=== PATIENT | female | born 1970 | race Caucasian/White ===

== ENCOUNTER → 2022-09-29 | Outpatient (CLI) | payer OTHER, SELFPAY ==
[2022-09-29 10:17] LABS: Absolute Neutrophil Count 2.4 X10^3/uL (2.0-7.7); Basophil# 0.03 X10^3/uL; Basophil% 0.7 % (0-1); Eosinophil# 0.08 X10^3/uL; Eosinophils% 1.8 % (0-5); Hematocrit 41.6 % (37-47); Hemoglobin 13.3 g/dL (12.0-15.0); Lymphocyte % 35.9 % (19-41); Mean Corpuscular Hgb 30.9 pg (27.0-32.0); Mean Corpuscular Volume 96.5 fL (81-99); Mean Platelet Vol. 9.2 fl (6.2-12.0); Monocyte# 0.33 X10^3/uL; Monocyte% 7.4 % (0-10); NRBC Flagged by Analyzer 0 % (0-5); Neutrophil # 2.41 X10^3/uL (2.7-7.7); Platelet Count 357 K/mm3 (150-450); RBC Distribution Width CV 12.9 % (11.6-14.6); RBC Distribution Width SD 46.3 fl (35.1-43.9); Red Blood Count 4.31 M/mm3 (4.2-5.4); White Blood Count 4.5 K/mm3 (4.4-11.0)
[2022-09-29 10:50] LABS: ALB/GLOB Ratio 1.2 RATIO (0.9-2.4); AST(SGOT) 26 U/L (15-37); Alanine Aminotransfer ALT/SGPT 27 U/L (13-56); Albumin, Serum 3.8 g/dL (3.2-5.0); Alkaline Phosphatase 59 U/L (45-117); Anion Gap 3 (5-15); BUN 17 mg/dL (7-18); BUN/Creat Ratio 24.4 RATIO (10-20); Calcium,Total 8.9 mg/dL (8.5-10.1); Chloride 107 mmol/L (98-107); Cholesterol 257 mg/dL (200); EST Glomerular Filtration Rate 93 mL/min (>60); Est Glom Filt Rate - Afr Amer 113 mL/min (>60); Globulin 3.3 g/dL (2.2-4.2); Glucose 89 mg/dL (74-106); High Density Lipoprotein 97 mg/dL; Potassium 3.8 mmol/L (3.5-5.1); Protein, Total 7.1 g/dL (6.4-8.2); Sodium Level 139 mmol/L (136-145); Triglycerides 64 mg/dL; Very Low Density Lipoprotein 13 mg/dL (5-40)
[2022-09-29 11:23] LABS: Hepatitis B Surface Antibody Reactive; Hepatitis B Surface Antigen Non-Reactive (Nonreactive); Hepatitis C Antibody Non-Reactive (Nonreactive)
[2022-10-01 19:07] LABS: QNTFERON TB Mitogen Value > 10.00 IU/mL (.); QNTFERON TB Nil Value 0.08 IU/mL (.); QNTFERON TB1+ Ag Value 0.08 IU/mL (.); QNTFERON TB2+ Ag Value 0.09 IU/mL (.)
[2022-10-02 08:29] LABS: Hepatitis B Core Ab Total Negative (Negative); QNTIFERON TB Positive Criteria Negative (Negative)
== END | disposition home or self-care (01) ==
PROVIDERS: PCP Internal Medicine Infectious Disease; Referring Provider Dermatology; Visit Provider Dermatology
DX: L63.1 Alopecia universalis (principal); Z79.622 Long term (current) use of Janus kinase inhibitor; Z79.899 Other long term (current) drug therapy
CPT/HCPCS: 36415; 80053; 80061; 85025; 86480; 86704; 86706; 86803; 87340

== ENCOUNTER → 2023-08-28 | Outpatient (CLI) | payer OTHER, SELFPAY ==
--- OUTSIDE RECORDS SUMMARY | 2023-08-28 08:15 | XMS RPT_ITS | CCD ---
Author Name Unknown Address [address] [facility] [address] [place] [address] Organization [facility] Care Team Providers Care Supervisor [employer] Name Role Phone WESTON LAWSON MD Admitting Unavailable WESTON LAWSON MD Attending Unavailable WESTON LAWSON MD Primary Care Unavailable Weston Lawson Primary Care Provider Weston Lawson MD Primary Care Provider WESTON LAWSON Primary Care Unavailable WESTON LAWSON Primary Care Unavailable WESTON LAWSON MD Primary Care Unavailable WESTON LAWSON MD Admitting Unavailable WESTON LAWSON MD Attending Unavailable WESTON LAWSON MD Consulting Unavailable PROVIDER, UNKNOWN Consulting Unavailable PROVIDER, UNKNOWN Consulting Unavailable PROVIDER, UNKNOWN Consulting Unavailable SILVERIO AGUILAR MD Attending Unavailable SILVERIO AGUILAR MD Primary Care Unavailable SILVERIO AGUILAR MD Admitting Unavailable Allergies Allergy Classification Reported Allergen(s) Allergy Type Date of Onset Reaction(s) Facility (5 sources) Escitalopram; Translations: [ESCITALOPRAM OXALATE] Drug Allergy 04-28-2005 Intolerance [facility] Work Phone: (5 sources) Meperidine; Translations: [MEPERIDINE (PF)] Drug Allergy 04-27-2005 [facility] Work Phone: Medications Current Medications Medication Drug Class(es) Dates Sig (Normalized) Sig (Original) fluconazole 150 mg oral tablet (2 sources) Azole Antifungal Start: 08-06-2022 End: 08-07-2022 take 1 tablet by mouth once daily fluconazole (DIFLUCAN) 150 mg tablet Indications: Dysuria Take 1 tablet by mouth once daily for 1 day. 1 tablet 0 08/06/2022 08/07/2022 Active Completed/Discontinued Medications Medication Drug Class(es) Dates Sig (Normalized) Sig (Original) betamethasone 0.5 mg/ml / clotrimazole 10 mg/ml topical cream (4 sources) Azole Antifungal, Corticosteroid Start: 04-07-2021 clotrimazole-beta methasone (LOTRISONE) cream Indications: Vulvar itching Apply 1 application to affected area twice daily. 15 g 2 04/07/2021 Active Problems Active Problems Problem Classification Problem Date Documented Da te Episodic/Chronic Anxiety disorders (4 sources) Anxiety state; Translations: [Generalized anxiety disorder] 11-24-2008 Chronic Cardiac dysrhythmias (4 sources) Palpitations; Translations: [Palpitations] 11-24-2008 Episodic Deficiency and other anemia (4 sources) Anemia; Translations: [Anemia, unspecified] 11-24-2008 Episodic Disorders of lipid metabolism (6 sources) Pure hypercholesterolemia, unspecified; Translations: [Pure hypercholesterolemia] Onset: 2 11-24-2008 Chronic Disorders of lipid metabolism (1 source) Pure hypercholesterolemia, unspecified; Translations: [Pure hypercholesterolemia, unspecified] Onset: 9 Esophageal disorders (4 sources) Gastroesophageal reflux disease; Translations: [Gastro-esophageal reflux disease without esophagitis] Onset: 5 04-28-2005 Chronic Gastrointestinal hemorrhage (4 sources) Hemorrhage of rectum and anus; Translations: [Hemorrhage of anus and rectum] 11-26-2008 Episodic Genitourinary symptoms and ill-defined conditions (2 sources) Dysuria; Translations: [Painful micturition, unspecified] Episodic Heart valve disorders (4 sources) Rheumatic mitral valve disease, unspecified; Translations: [Mitral valve disorders] 11-24-2008 Chronic Other aftercare (1 source) Other chcf (current) drug therapy; Translations: [Other chcf (current) drug therapy] Onset: 3 Episodic Other non-traumatic joint disorders (4 sources) Pain in forearm; Translations: [Pain in unspecified wrist] 11-24-2008 Episodic Other upper respiratory disease (4 sources) Allergic rhinitis; Translations: [Allergic rhinitis, unspecified] 11-24-2008 Chronic Other upper respiratory infections (4 sources) Acute sinusitis; Translations: [Acute sinusitis, unspecified] 11-24-2008 Episodic Urinary tract infections (1 source) Acute cystitis; Translations: [Acute cystitis with hematuria] Episodic Viral infection (4 sources) Verruca vulgaris; Translations: [Viral wart, unspecified] 11-24-2008 Episodic Past or Other Problems Problem Classification Problem Date Documented Da te Episodic/Chronic Abdominal pain (4 sources) Epigastric pain; Translations: [Epigastric pain] Onset: 04-28-2005 04-28-2005 Episodic Gastritis and duodenitis (4 sources) Acute gastritis; Translations: [Acute gastritis without bleeding] Onset: 05-06-2005 05-06-2005 Episodic Other female genital disorders (4 sources) Vulval and/or perineal noninflammatory disorders; Translations: [Noninflammatory disorder of vulva and perineum, unspecified] Onset: 07-01-2010 07-01-2010 Episodic Other gastrointestinal disorders (4 sources) Constipation; Translations: [Constipation, unspecified] Onset: 04-28-2005 04-28-2005 Episodic Other skin disorders (4 sources) Alopecia totalis; Translations: [Alopecia (capitis) totalis] Onset: 01-16-2019 01-16-2019 Episodic Results Test Name Value Interpretation Reference Range Facil ity Vital Signs Date Time Vital Sign Value Performing Clinician [facility] 08-06-2022 08:19-0500 Body temperature 97.5 [degF] Jose Keen APRN.CNP Work Phone: [facility] 08-06-2022 08:19-0500 Body weight 63.05 kg Jose Keen APRN.CNP Work Phone: [facility] 08-06-2022 08:19-0500 Diastolic blood pressure 80 mm[Hg] Jose Keen APRN.CNP Work Phone: [facility] 08-06-2022 08:19-0500 Heart rate 74 /min Jose Keen APRN.CNP Work Phone: [facility] 08-06-2022 08:19-0500 Respiratory rate 20 /min Jose Keen APRN.CNP Work Phone: [facility] 08-06-2022 08:19-0500 SaO2% (BldA) [Mass fraction] 98 % Jose Keen ELEMENTARY SUBSTITUTE TEACHER.BILINGUAL SPEECH LANGUAGE PATHOLOGIST Work Phone: [facility] 08-06-2022 08:19-0500 Systolic blood pressure 116 mm[Hg] Jose Keen ELEMENTARY SUBSTITUTE TEACHER.BILINGUAL SPEECH LANGUAGE PATHOLOGIST Work Phone: [facility] 02-20-2022 08:34-0400 Body temperature 97.81 [degF] Darlene Curry ELEMENTARY SUBSTITUTE TEACHER.BILINGUAL SPEECH LANGUAGE PATHOLOGIST Work Phone: [facility] 02-20-2022 08:34-0400 Body weight 62.78 kg Darlene Curry ELEMENTARY SUBSTITUTE TEACHER.BILINGUAL SPEECH LANGUAGE PATHOLOGIST Work Phone: [facility] 02-20-2022 08:34-0400 Diastolic blood pressure 68 mm[Hg] Darlene Curry ELEMENTARY SUBSTITUTE TEACHER.BILINGUAL SPEECH LANGUAGE PATHOLOGIST Work Phone: [facility] 02-20-2022 08:34-0400 Heart rate 85 /min Darlene Curry ELEMENTARY SUBSTITUTE TEACHER.BILINGUAL SPEECH LANGUAGE PATHOLOGIST Work Phone: [facility] 02-20-2022 08:34-0400 Respiratory rate 21 /min Darlene Curry ELEMENTARY SUBSTITUTE TEACHER.BILINGUAL SPEECH LANGUAGE PATHOLOGIST Work Phone: [facility] 02-20-2022 08:34-0400 SaO2% (BldA) [Mass fraction] 99 % Darlene Curry ELEMENTARY SUBSTITUTE TEACHER.BILINGUAL SPEECH LANGUAGE PATHOLOGIST Work Phone: [facility] 02-20-2022 08:34-0400 Systolic blood pressure 122 mm[Hg] Darlene Curry ELEMENTARY SUBSTITUTE TEACHER.BILINGUAL SPEECH LANGUAGE PATHOLOGIST Work Phone: [facility] Encounters Encounter Date Encounter Type Care Provider Facility Start: 01-27-2023 End: 01-27-2023 ambulatory WESTON CAMARGO [facility] Start: 01-27-2023 Encounter for genera l adult medical examination without abnormal findings WESTON CAMARGO [facility] Start: 08-07-2022 Telephone encounter Jose hillman APRN.BILINGUAL SPEECH LANGUAGE PATHOLOGIST Work Phone: [facility] Procedures Date Procedure Procedure Detail Performing Clinician Start: 01-27-2023 Urinalysis WESTON CANNON Plan of Treatment Date Care Activity Detail Author Start: 04-07-2026 HPV TESTING HPV TESTING [facility] Start: 04-07-2026 PAP TESTING PAP TESTING [facility] Start: 06-19-2022 DEPRESSION ASSESSMENT DEPRESSION ASSESSMENT [facility] Start: 02-17-2022 Influenza vaccination INFLUENZA (#1) [facility] Start: 2018 SHINGRIX VACCINE (1 of 2) SHINGRIX VACCINE (1 of 2) [facility] Start: 07-20-2016 Mammography MAMMOGRAM [facility] Start: 2013 COLOGUARD (FIT-DNA) COLOGUARD (FIT-DNA) [facility] Start: 2013 Colonoscopy COLONOSCOPY [facility] Start: 2013 COLORECTAL CANCER SCREENING COLORECTAL CANCER SCREENING [facility] Start: [address] COLONOGRAPHY [facility] Start: 2013 DIABETES SCREEN DIABETES SCREEN [facility] Start: 2013 FECAL OCCULT BLOOD FECAL OCCULT BLOOD [facility] Start: 2013 LIPID SCREEN LIPID SCREEN [facility] Start: 2013 SIGMOIDOSCOPY SIGMOIDOSCOPY [facility] Start: 1987 Urine microalbumin profile DTAP,TDAP,TD (1 - Tdap) [facility] Start: 1986 HEPATITIS C SCREENING HEPATITIS C SCREENING [facility] Start: 1986 HIV SCREENING HIV SCREENING [facility] Start: 1980 Adult depression screening assessment DEPRESSION SCREENING [facility] Start: 1968 COVID-19 VACCINE (#1) COVID-19 VACCINE (#1) [facility] Start: 1968 HEPATITIS B (1 of 3 - 3-dose series) HEPATITIS B (1 of 3 - 3-dose series) [facility] Bacteria identified in Urine by Culture URINE CULTURE Microbiology Routine Painful urination Ordered: 02/20/2022 [facility] Work Phone: Payers Date Payer Category Payer Unknown MMO MMO [employer] [id number] 2021-Present [phone] [address] [place] [address] PPO [id number] 2019 Unknown [id number] 2017 Unknown [id number] 1968 Unknown [id number] 1968 Unknown [id number] 1968 Unknown [id number] 1968 Unknown [id number] Social History Date Type Detail Facility Tobacco smoking stat [facility] Never smoked tobacco [facility] Start: 02-20-2022 End: 08-06-2022 Alcohol intake Current drinker of alcohol (finding) [facility] Start: 02-20-2022 End: 08-06-2022 Alcohol intake [facility] Start: 1970 Sex Assigned At Not on file C [facility] Start: 02-10-2022 End: 02-20-2022 Exposure to SARS-CoV-2 (event) Not sure [facility] Clinical Notes 04-28-2005 to 08-08-2022 Telephone Encounter - Sonam Holt RN - 08/08/2022 8:20 AM ESTTelephone Encounter - Josee New - 08/08/2022 8:10 AM ESTTelephone Encounter - Qiana Ocasio LPN - 08/07/2022 10:58 AM EST Note Date & Type Note Facility 08-08-2022 Miscellaneous Notes Patient notified of results and provider's instructions. Patient verbalizes understanding. Sonam Holt RN Left message for patient to return call. Josee New Left message to return call. Please notify that urine culture showed presence of bacteria, though not large enough amount to call UTI. May continue taking the antibiotic if feeling better. f/u with pcp if s/s persist/worsen/change. Hematuria noted on ua, patient should have urine retested with pcp in 2-4 weeks to see if persisting. documented in this encounter [facility] 08-06-2022 Note HNO ID: [id number] Author: Jose Keen APRN.MADDY Service: ? Author Type: Nurse Practitioner Type: Progress Notes Filed: 08/06/2022 9:09 AM Note Text: Subjective HPI HPI Khoa Molina is a 52 year old female who presents today for CC of urinary urgency, frequency, burning. This started 1 day ago. Has tried nothing for relief ago. Symptoms are worsened by nothing. Risk factors hx of uti, these s/s feel classic. .Patient presents with: UTI: Burning and frequency x 1 day PAST MEDICAL HISTORY Diagnosis Date Acute sinusitis, unspecified Allergic rhinitis, cause unspecified Anemia, unspecified Anxiety state, unspecified Esophageal reflux Gastroesophageal reflux resolved Excessive or frequent menstruation Heavy periods resolved Hemorrhage of rectum and anus Mitral valve disorders(424.0) Pain in joint, forearm Palpitations Pure hypercholesterolemia Unspecified constipation Viral warts, unspecified PAST SURGICAL HISTORY Procedure Laterality Date APPENDECTOMY BREAST BIOPSY NEEDLE RIGHT Right 04/15/2021 Fibrocystic disease with aprocrine metaplasia, no malignancy.marker placed 6 o'clock DILATION AND CURETTAGE DXAND/THER NONOBSTETRIC Dilation AND curettage HYSTEROSCOPY W/ENDOMET ABLAT 07/07/2009 Novasure Ablation LIG/TRNSXJ FLP TUBE ABDL/VAG APPR UNI/BI Tubal ligation TONSILLECTOMY PRIMARY/SECONDARY Tonsillectomy ALLERGIES Demerol [Meperidine (Pf)] and Lexapro [Escitalopram Oxalate] MEDICATIONS clotrimazole-betamethasone (LOTRISONE) cream Apply 1 application to affected area twice daily. paroxetine hcl(PAXIL CR 12.5 MG 24 HR TAB) Take one(1) tablet daily. nitrofurantoin monohydrate and macrocrystal (MACROBID) 100 mg capsule Take 1 capsule by mouth twice daily for 7 days. phenazopyridine (PYRIDIUM) 200 mg tablet Take 1 tablet by mouth three times daily as needed. fluconazole (DIFLUCAN) 150 mg tablet Take 1 tablet by mouth once daily for 1 day. FAMILY HISTORY Problem Relation Age of Onset Diabetes Mother other (mitral valve) Mother other (htn) Father AMYLOIDOSIS No Known Problems Sister No Known Problems Sister No Known Problems Sister No Known Problems Brother Diabetes Maternal Grandmother Diabetes Maternal Grandfather Social History Tobacco Use Smoking status: Never Smokeless tobacco: Never Vaping Use Vaping Use: Never used Substance Use Topics Alcohol use: Yes Alcohol/week: 5.0 standard drinks Types: 2 Glasses of Wine (5oz) per week Comment: OCC Drug use: No Review of Systems Constitutional: Negative for chills, fever and weight loss. Respiratory: Negative for cough, shortness of breath and wheezing. Cardiovascular: Negative for chest pain and palpitations. Gastrointestinal: Negative for abdominal pain, blood in stool, constipation, diarrhea, heartburn, melena, nausea and vomiting. Genitourinary: Positive for dysuria, frequency and urgency. Negative for flank pain and hematuria. Musculoskeletal: Negative for myalgias. Objective Blood pressure 116/80, pulse 74, temperature 36.4 ?C (97.5 ?F), resp. rate 20, weight 63 kg (139 lb), last menstrual period 09/19/2011, SpO2 98 %. Physical Exam Constitutional: General: She is not in acute distress. Appearance: Normal appearance. She is not toxic-appearing. Cardiovascular: Rate and Rhythm: Normal rate and regular rhythm. Heart sounds: Normal heart sounds. Pulmonary: Effort: Pulmonary effort is normal. Breath sounds: Normal breath sounds. Abdominal: General: Bowel sounds are normal. Palpations: Abdomen is soft. Tenderness: There is no abdominal tenderness. Skin: General: Skin is warm and dry. ASSESSMENT/PLAN: 1. Dysuria - ICD9: 788.1, ICD10: R30.0 acute - UA positive for aleah esterase and hematuria - Send urine for culture - Begin treatment with Macrobid 100 mg BID for 7 days - NITROFURANTOIN MONOHYDRATE AND MACROCRYSTAL 100 MG ORAL CAP - PHENAZOPYRIDINE 200 MG TABLET - FLUCONAZOLE 150 MG TABLET - URINE CULTURE Jose Keen APRN.[facility] 08-06-2022 Instructions Jose Keen APRN.CNP - 08/06/2022 9:08 AM EST Patient Education for Female Urinary Tract Infections Possible complications: Pyelonehritis Renal abscess Expected course/prognosis: * symptoms resolve within 2-3 days after starting treatment in almost all patients * one-fourth of women with simple UTI experience a second UTI within 6 months, and half at some time during lifetime. * patients with multiple recurrent UTI and no underlying urinary tract abnormality may receive long-term prophylactic antibioitic treatment. Trimethoprim-sulfamethoxazole and nitrofurantoin common used. * women with frequent or intercourse-related UTI should empty bladder immediately before and following intercourse and consider postcoital antibiotic treament Instructions: * Maintain good hydration * Avoid sexual intercourse when symptoms present *Take antibiotic as directed * Return if symptoms not resolved or markedly improved within 48 hours * Return if fever, chills, or flank pain develop * If taking prophylactic antiobiotics, take at bedtime * Take showers instead of tub baths * Avoid feminine hygiene sprays and scented douches * Wipe urethra from front to back documented in this encounter [facility] 08-06-2022 History of Present illness Narrative Subjective HPI HPI Khoa Molina is a 52 year old female who presents today for CC of urinary urgency, frequency, burning. This started 1 day ago. Has tried nothing for relief ago. Symptoms are worsened by nothing. Risk factors hx of uti, these s/s feel classic. .Patient presents with: UTI: Burning and frequency x 1 day PAST MEDICAL HISTORY Diagnosis Date Acute sinusitis, unspecified Allergic rhinitis, cause unspecified Anemia, unspecified Anxiety state, unspecified Esophageal reflux Gastroesophageal reflux resolved Excessive or frequent menstruation Heavy periods resolved Hemorrhage of rectum and anus Mitral valve disorders(424.0) Pain in joint, forearm Palpitations Pure hypercholesterolemia Unspecified constipation Viral warts, unspecified PAST SURGICAL HISTORY Procedure Laterality Date APPENDECTOMY BREAST BIOPSY NEEDLE RIGHT Right 04/15/2021 Fibrocystic disease with aprocrine metaplasia, no malignancy.marker placed 6 o'clock DILATION & CURETTAGE DX&/THER NONOBSTETRIC Dilation & curettage HYSTEROSCOPY W/ENDOMET ABLAT 07/07/2009 Novasure Ablation LIG/TRNSXJ FLP TUBE ABDL/VAG APPR UNI/BI Tubal ligation TONSILLECTOMY PRIMARY/SECONDARY <AGE 12 Tonsillectomy ALLERGIES Demerol [Meperidine (Pf)] and Lexapro [Escitalopram Oxalate] MEDICATIONS clotrimazole-betamethasone (LOTRISONE) cream Apply 1 application to affected area twice daily. paroxetine hcl(PAXIL CR 12.5 MG 24 HR TAB) Take one(1) tablet daily. nitrofurantoin monohydrate and macrocrystal (MACROBID) 100 mg capsule Take 1 capsule by mouth twice daily for 7 days. phenazopyridine (PYRIDIUM) 200 mg tablet Take 1 tablet by mouth three times daily as needed. fluconazole (DIFLUCAN) 150 mg tablet Take 1 tablet by mouth once daily for 1 day. FAMILY HISTORY Problem Relation Age of Onset Diabetes Mother other (mitral valve) Mother other (htn) Father AMYLOIDOSIS No Known Problems Sister No Known Problems Sister No Known Problems Sister No Known Problems Brother Diabetes Maternal Grandmother Diabetes Maternal Grandfather Social History Tobacco Use Smoking status: Never Smokeless tobacco: Never Vaping Use Vaping Use: Never used Substance Use Topics Alcohol use: Yes Alcohol/week: 5.0 standard drinks Types: 2 Glasses of Wine (5oz) per week Comment: OCC Drug use: No Review of Systems Constitutional: Negative for chills, fever and weight loss. Respiratory: Negative for cough, shortness of breath and wheezing. Cardiovascular: Negative for chest pain and palpitations. Gastrointestinal: Negative for abdominal pain, blood in stool, constipation, diarrhea, heartburn, melena, nausea and vomiting. Genitourinary: Positive for dysuria, frequency and urgency. Negative for flank pain and hematuria. Musculoskeletal: Negative for myalgias. Objective Blood pressure 116/80, pulse 74, temperature 36.4 C (97.5 F), resp. rate 20, weight 63 kg (139 lb), last menstrual period 09/19/2011, SpO2 98 %. Physical Exam Constitutional: General: She is not in acute distress. Appearance: Normal appearance. She is not toxic-appearing. Cardiovascular: Rate and Rhythm: Normal rate and regular rhythm. Heart sounds: Normal heart sounds. Pulmonary: Effort: Pulmonary effort is normal. Breath sounds: Normal breath sounds. Abdominal: General: Bowel sounds are normal. Palpations: Abdomen is soft. Tenderness: There is no abdominal tenderness. Skin: General: Skin is warm and dry. ASSESSMENT/PLAN: 1. Dysuria - ICD9: 788.1, ICD10: R30.0 acute - UA positive for aleah esterase and hematuria - Send urine for culture - Begin treatment with Macrobid 100 mg BID for 7 days - NITROFURANTOIN MONOHYDRATE & MACROCRYSTAL 100 MG ORAL CAP - PHENAZOPYRIDINE 200 MG TABLET - FLUCONAZOLE 150 MG TABLET - URINE CULTURE Jose Keen APRN.MADDY documented in this encounter [facility] 02-21-2022 Miscellaneous Notes Patient given results and verbalized understanding of instructions given. Josee New Patient did not review [employer] message. Please call and discuss following Carroll Levi, With the malfunction of the computer at the time you were leaving, I did not send in the Diflucan. I have sent it in now to [facility]. documented in this encounter [facility] 02-20-2022 Miscellaneous Notes Addended by: DARLENE CURRY on: 02/20/2022 10:55 AM Modules accepted: Orders documented in this encounter [facility] 02-20-2022 Note HNO ID: [id number] Author: Darlene Curry APRN.CNP Service: ? Author Type: Nurse Practitioner Type: Progress Notes Filed: 02/20/2022 8:50 AM Note Text: This note was created using NoteWriter. Subjective Khoa Molina is a 51 year old female. 51 year old female with PMH hypercholesteremia, anemia, and anxiety presents for possible UTI. Acute onset of symptoms yesterday. Endorses she just got back from vacation. +freuency +urgency +dysuria +suprapubic pressure Denies flank pain. Denies N/V/D Endorses recent cotius Denies vaginal discharge. Denies vaginal bleeding. Post menopausal. The history is provided by the patient. No language asst was used. UTI This is a new problem. The current episode started yesterday. The problem occurs every urination. The problem has been gradually worsening. The quality of the pain is described as burning. The pain is at a severity of 5/10. The patient is experiencing no pain. There has been no fever. She is Sexually active. There is No history of pyelonephritis. Associated symptoms include frequency and urgency. Pertinent negatives include no chills, no sweats, no nausea, no vomiting, no discharge, no hematuria, no hesitancy, no possible and no flank pain. She has tried nothing for the symptoms. Her past medical history does not include kidney stones, single kidney, urological procedure, recurrent UTIs, urinary stasis or catheterization. PAST MEDICAL HISTORY Diagnosis Date Acute sinusitis, unspecified Allergic rhinitis, cause unspecified Anemia, unspecified Anxiety state, unspecified Esophageal reflux Gastroesophageal reflux resolved Excessive or frequent menstruation Heavy periods resolved Hemorrhage of rectum and anus Mitral valve disorders(424.0) Pain in joint, forearm Palpitations Pure hypercholesterolemia Unspecified constipation Viral warts, unspecified PAST SURGICAL HISTORY Procedure Laterality Date APPENDECTOMY BREAST BIOPSY NEEDLE RIGHT Right 04/15/2021 Fibrocystic disease with aprocrine metaplasia, no malignancy.marker placed 6 o'clock DILATION AND CURETTAGE DXAND/THER NONOBSTETRIC Dilation AND curettage HYSTEROSCOPY W/ENDOMET ABLAT 07/07/2009 Novasure Ablation LIG/TRNSXJ FLP TUBE ABDL/VAG APPR UNI/BI Tubal ligation TONSILLECTOMY PRIMARY/SECONDARY Tonsillectomy ALLERGIES Demerol [Meperidine (Pf)] and Lexapro [Escitalopram Oxalate] MEDICATIONS clotrimazole-betamethasone (LOTRISONE) cream Apply 1 application to affected area twice daily. paroxetine hcl(PAXIL CR 12.5 MG 24 HR TAB) Take one(1) tablet daily. sulfamethoxazole-trimethoprim (BACTRIM DS) 800-160 mg per tablet Take 1 tablet by mouth twice daily for 3 days. phenazopyridine (PYRIDIUM) 200 mg tablet Take 1 tablet by mouth three times daily as needed. FAMILY HISTORY Problem Relation Age of Onset Diabetes Mother other (mitral valve) Mother other (htn) Father AMYLOIDOSIS No Known Problems Sister No Known Problems Sister No Known Problems Sister No Known Problems Brother Diabetes Maternal Grandmother Diabetes Maternal Grandfather Social History Tobacco Use Smoking status: Never Smokeless tobacco: Never Vaping Use Vaping Use: Never used Substance Use Topics Alcohol use: Yes Alcohol/week: 5.0 standard drinks Types: 2 Glasses of Wine (5oz) per week Comment: OCC Drug use: No Review of Systems Constitutional: Negative for chills, fatigue and fever. Eyes: Negative for pain, discharge and itching. Respiratory: Negative for apnea, cough, choking, chest tightness and shortness of breath. Cardiovascular: Negative for chest pain, palpitations and leg swelling. Gastrointestinal: Negative for abdominal pain, nausea and vomiting. Genitourinary: Positive for dysuria, frequency and urgency. Negative for flank pain, hematuria and hesitancy. Musculoskeletal: Negative for arthralgias, back pain and gait problem. Skin: Negative for color change, pallor, rash and wound. Allergic/Immunologic: Negative for environmental allergies, food allergies and immunocompromised state. Hematological: Negative for adenopathy. Does not bruise/bleed easily. Psychiatric/Behavioral: Negative for agitation and behavioral problems. Objective BP 122/68 Pulse 85 Temp 36.6 ?C (97.8 ?F) Resp 21 Wt 62.8 kg (138 lb 6.4 oz) LMP 09/19/2011 SpO2 99% BMI 22.34 kg/m? Physical Exam Vitals and nursing note reviewed. Constitutional: General: She is not in acute distress. Appearance: Normal appearance. She is normal weight. She is not ill-appearing, toxic-appearing or diaphoretic. HENT: Head: Normocephalic and atraumatic. Right Ear: Ear canal and external ear normal. Left Ear: Ear canal and external ear normal. Nose: Nose normal. No congestion or rhinorrhea. Mouth/Throat: Mouth: Mucous membranes are moist. Pharynx: No oropharyngeal exudate or posterior oropharyngeal erythema. Eyes: Gen (more content not included)... [facility] 02-20-2022 History of Present illness Narrative This note was created using NoteWriter. Subjective Khoa Yamile Molina is a 51 year old female. 51 year old female with PMH hypercholesteremia, anemia, and anxiety presents for possible UTI. Acute onset of symptoms yesterday. Endorses she just got back from vacation. +freuency +urgency +dysuria +suprapubic pressure Denies flank pain. Denies N/V/D Endorses recent cotius Denies vaginal discharge. Denies vaginal bleeding. Post menopausal. The history is provided by the patient. No language asst was used. UTI This is a new problem. The current episode started yesterday. The problem occurs every urination. The problem has been gradually worsening. The quality of the pain is described as burning. The pain is at a severity of 5/10. The patient is experiencing no pain. There has been no fever. She is Sexually active. There is No history of pyelonephritis. Associated symptoms include frequency and urgency. Pertinent negatives include no chills, no sweats, no nausea, no vomiting, no discharge, no hematuria, no hesitancy, no possible and no flank pain. She has tried nothing for the symptoms. Her past medical history does not include kidney stones, single kidney, urological procedure, recurrent UTIs, urinary stasis or catheterization. PAST MEDICAL HISTORY Diagnosis Date Acute sinusitis, unspecified Allergic rhinitis, cause unspecified Anemia, unspecified Anxiety state, unspecified Esophageal reflux Gastroesophageal reflux resolved Excessive or frequent menstruation Heavy periods resolved Hemorrhage of rectum and anus Mitral valve disorders(424.0) Pain in joint, forearm Palpitations Pure hypercholesterolemia Unspecified constipation Viral warts, unspecified PAST SURGICAL HISTORY Procedure Laterality Date APPENDECTOMY BREAST BIOPSY NEEDLE RIGHT Right 04/15/2021 Fibrocystic disease with aprocrine metaplasia, no malignancy.marker placed 6 o'clock DILATION & CURETTAGE DX&/THER NONOBSTETRIC Dilation & curettage HYSTEROSCOPY W/ENDOMET ABLAT 07/07/2009 Novasure Ablation LIG/TRNSXJ FLP TUBE ABDL/VAG APPR UNI/BI Tubal ligation TONSILLECTOMY PRIMARY/SECONDARY <AGE 12 Tonsillectomy ALLERGIES Demerol [Meperidine (Pf)] and Lexapro [Escitalopram Oxalate] MEDICATIONS clotrimazole-betamethasone (LOTRISONE) cream Apply 1 application to affected area twice daily. paroxetine hcl(PAXIL CR 12.5 MG 24 HR TAB) Take one(1) tablet daily. sulfamethoxazole-trimethoprim (BACTRIM DS) 800-160 mg per tablet Take 1 tablet by mouth twice daily for 3 days. phenazopyridine (PYRIDIUM) 200 mg tablet Take 1 tablet by mouth three times daily as needed. FAMILY HISTORY Problem Relation Age of Onset Diabetes Mother other (mitral valve) Mother other (htn) Father AMYLOIDOSIS No Known Problems Sister No Known Problems Sister No Known Problems Sister No Known Problems Brother Diabetes Maternal Grandmother Diabetes Maternal Grandfather Social History Tobacco Use Smoking status: Never Smokeless tobacco: Never Vaping Use Vaping Use: Never used Substance Use Topics Alcohol use: Yes Alcohol/week: 5.0 standard drinks Types: 2 Glasses of Wine (5oz) per week Comment: OCC Drug use: No Review of Systems Constitutional: Negative for chills, fatigue and fever. Eyes: Negative for pain, discharge and itching. Respiratory: Negative for apnea, cough, choking, chest tightness and shortness of breath. Cardiovascular: Negative for chest pain, palpitations and leg swelling. Gastrointestinal: Negative for abdominal pain, nausea and vomiting. Genitourinary: Positive for dysuria, frequency and urgency. Negative for flank pain, hematuria and hesitancy. Musculoskeletal: Negative for arthralgias, back pain and gait problem. Skin: Negative for color change, pallor, rash and wound. Allergic/Immunologic: Negative for environmental allergies, food allergies and immunocompromised state. Hematological: Negative for adenopathy. Does not bruise/bleed easily. Psychiatric/Behavioral: Negative for agitation and behavioral problems. Objective BP 122/68 Pulse 85 Temp 36.6 C (97.8 F) Resp 21 Wt 62.8 kg (138 lb 6.4 oz) LMP 09/19/2011 SpO2 99% BMI 22.34 kg/m Physical Exam Vitals and nursing note reviewed. Constitutional: General: She is not in acute distress. Appearance: Normal appearance. She is normal weight. She is not ill-appearing, toxic-appearing or diaphoretic. HENT: Head: Normocephalic and atraumatic. Right Ear: Ear canal and external ear normal. Left Ear: Ear canal and external ear normal. Nose: Nose normal. No congestion or rhinorrhea. Mouth/Throat: Mouth: Mucous membranes are moist. Pharynx: No oropharyngeal exudate or posterior oropharyngeal erythema. Eyes: General: Right eye: No discharge. Left eye: No discharge. Extraocular Movements: Extraocular movements intact. Conjunctiva/sclera: Conjunctivae normal. Pupils: Pupils are equal, round, and reactive to light. Cardiovascular: Rate and Rhythm: Normal rate and regular rhythm. Pulses: Normal pulses. Heart sounds: Normal heart sounds. No murmur heard. No friction rub. Pulmonary: Effort: Pulmonary effort is normal. No respiratory distress. Breath sounds: Normal breath sounds. No stridor. No wheezing, rhonchi or rales. Chest: Chest wall: No tenderness. Abdominal: General: Abdomen is flat. There is no distension. Palpations: Abdomen is soft. There is no mass. Tenderness: There is no abdominal tenderness. There is no right CVA tenderness, left CVA tenderness, guarding or rebound. Hernia: No hernia is present. Musculoskeletal: General: No swelling, tenderness, deformity or signs of injury. Normal range of motion. Cervical back: Normal range of motion and neck supple. No rigidity. Right lower leg: No edema. Left lower leg: No edema. Lymphadenopathy: Cervical: No cervical adenopathy. Skin: General: Skin is warm and dry. Capillary Refill: Capillary refill takes less than 2 seconds. Coloration: Skin is not jaundiced or pale. Findings: No bruising, erythema, lesion or rash. Neurological: General: No focal deficit present. Mental Status: She is alert and oriented to person, place, and time. Cranial Nerves: No cranial nerve deficit. Sensory: No sensory deficit. Motor: No weakness. Coordination: Coordination normal. Gait: Gait normal. Psychiatric: Mood and Affect: Mood normal. Behavior: Behavior normal. Thought Content: Thought content normal. Judgment: Judgment normal. Assessment and Plan ASSESSMENT/PLAN: 1. Painful urination - ICD9: 788.1, ICD10: R30.9 (primary diagnosis) acute - UA positive for aleah esterase and hematuria - Send urine for culture - Begin treatment with Bactrim DS BID for 3 days RX Pyridium - Patient education for prevention given - UA DIP, URINE (POC) - URINE CULTURE 2. Acute cystitis with hematuria - ICD9: 595.0, ICD10: N30.01 acute - UA positive for aleah esterase and hematuria - Send urine for culture - Begin treatment with Bactrim DS BID for 3 days RX Pyridium - Patient education for prevention given - UA DIP, URINE (POC) - URINE CULTURE Darlene Curry APRN.CNP documented in this encounter [facility] documented as of this encounter (statuses as of 02/20/2022) [facility]11-10-2005 History of Past illness Narrative* Problem Noted Date Resolved Date Abdominal pain, left upper quadrant 04/28/2005 07/01/2010 Excessive or frequent menstruation 07/01/2010 Overview: Heavy periods documented as of this encounter (statuses as of 02/23/2022) [facility]11-10-2005 History of Past illness Narrative* Problem Noted Date Resolved Date Abdominal pain, left upper quadrant 04/28/2005 07/01/2010 Excessive or frequent menstruation 07/01/2010 Overview: Heavy periods documented as of this encounter (statuses as of 08/06/2022) [facility] History of Past illness Narrative* Problem Noted Date Resolved Date Abdominal pain, left upper quadrant 04/28/2005 07/01/2010 Excessive or frequent menstruation 07/01/2010 Overview: Heavy periods documented as of this encounter (statuses as of 08/08/2022) [facility] Painful urination- Primary Dysuria Acute cystitis with hematuria Acute cystitis [facility] Diagnosis Dysuria- Primary documented in this encounter [facility] Summary Purpose Family History No Family History Records FoundNo Family History Records FoundNo Family History Records FoundNo Family History Records FoundNo Family History Records Found Advance Directives No Advanced Directives Records FoundNo Advanced Directives Records FoundNo Advanced Directives Records FoundNo Advanced Directives Records FoundNo Advanced Directives Records Found Additional Source Comments INFORMATION SOURCE (unrecogn ized section and content) DATE CREATED AUTHOR AUTHOR'S ORGANIZ ATION 04/20/2021 [facility] ([place]) DATE CREATED AUTHOR AUTHOR'S ORGANIZ ATION 01/05/2022 [facility] DATE CREATED AUTHOR AUTHOR'S ORGANIZ ATION 08/08/2022 [facility] DATE CREATED AUTHOR AUTHOR'S RODOLFO JHA 01/28/2023 [facility] Source Comments (unrecognize d section and content) In the event this informatio n is protected by the Federal Confidentiality of Alcohol and Drug Abuse Patient Records regulations: The Federal rules restrict any use of the information to criminally investigate or prosecute any alcohol or drug abuse patient.[facility] the event this information is protected by the Federal Confidentiality of Alcohol and Drug Abuse Patient Records regulations: The Federal rules restrict any use of the information to criminally investigate or prosecute any alcohol or drug abuse patient.[facility] the event this information is protected by the Federal Confidentiality of Alcohol and Drug Abuse Patient Records regulations: The Federal rules restrict any use of the information to criminally investigate or prosecute any alcohol or drug abuse patient.[facility] the event this information is protected by the Federal Confidentiality of Alcohol and Drug Abuse Patient Records regulations: The Federal rules restrict any use of the information to criminally investigate or prosecute any alcohol or drug abuse patient.[facility] Reason for Visit (unrecogniz ed section and content) Reason Comments Results Medication Problem Reason Comments UTI Burning and frequenc y x 1 day Reason Comments Results Care Teams (unrecognized sec tion and content) [employer] Relationship Specialty Start Date End Date Weston Lawson [address] [place] [id number] PCP - General 12/02/03 [employer] Relationship Specialty Start Date End Date Weston Lawson MD [facility] [place] [address] PCP - General 12/02/03 [employer] Relationship Specialty Start Date End Date Weston Lawson MD [address] [place] [id number] PCP - General 12/02/03 FOR RECORDS PERTAINING TO PATIENTS WHO ARE OR HAVE BEEN ENROLLED IN A CHEMICAL DEPENDENCY/SUBSTANCEABUSE PROGRAM, SOME INFORMATION MAY BE OMITTED. This clinical summary was aggregated from multiple sources. Caution should be exercised in using it in the provision of clinical care. This summary normalizes information from multiple sources, and as a consequence, information in this document may materially change the coding, format and clinical context of patient data. In addition, data may be omitted in some cases. CLINICAL DECISIONS SHOULD BE BASED ON THE PRIMARY CLINICAL RECORDS. [facility] [employer] [facility]. provides no warranty or guarantee of the accuracy or completeness of information in this document.
[2023-08-28 10:35] LABS: Absolute Lymphocyte Count 1.88 X10^3/uL (0.83-4.51); Absolute Neutrophil Count 2.7 X10^3/uL (2.0-7.7); Basophil# 0.04 X10^3/uL; Basophil% 0.8 % (0-1); Eosinophil# 0.13 X10^3/uL; Eosinophils% 2.5 % (0-5); Hematocrit 38.3 % (37-47); Hemoglobin 12.4 g/dL (12.0-15.0); Lymphocyte # 1.88 X10^3/ul (0.83-4.51); Lymphocyte % 36.4 % (19-41); Mean Corp Hgb Conc 32.4 g/dL (32-36); Mean Corpuscular Hgb 31.2 pg (27.0-32.0); Mean Corpuscular Volume 96.2 fL (81-99); Mean Platelet Vol. 9.3 fl (6.2-12.0); Monocyte# 0.44 X10^3/uL; Monocyte% 8.5 % (0-10); NRBC Flagged by Analyzer 0 % (0-5); Neutrophil # 2.66 X10^3/uL (2.7-7.7); Neutrophil % 51.6 % (47-70); Platelet Count 326 K/mm3 (150-450); RBC Distribution Width CV 12.3 % (11.6-14.6); RBC Distribution Width SD 43.7 fl (35.1-43.9); Red Blood Count 3.98 M/mm3 (4.2-5.4); White Blood Count 5.2 K/mm3 (4.4-11.0)
[2023-08-28 11:34] LABS: ALB/GLOB Ratio 1.2 RATIO (0.9-2.4); AST(SGOT) 25 U/L (15-37); Alanine Aminotransfer ALT/SGPT 27 U/L (13-56); Albumin, Serum 3.6 g/dL (3.2-5.0); Alkaline Phosphatase 53 U/L (45-117); Anion Gap 4 (5-15); BUN 12 mg/dL (7-18); BUN/Creat Ratio 14.9 RATIO (10-20); Calcium,Total 8.8 mg/dL (8.5-10.1); Chloride 108 mmol/L (98-107); Cholesterol 232 mg/dL (200); Creatinine, Serum 0.81 mg/dL (0.55-1.02); EST Glomerular Filtration Rate 78 mL/min (>60); Est Glom Filt Rate - Afr Amer 95 mL/min (>60); Globulin 3.1 g/dL (2.2-4.2); Glucose 91 mg/dL (74-106); High Density Lipoprotein 78 mg/dL; Protein, Total 6.7 g/dL (6.4-8.2); Sodium Level 139 mmol/L (136-145); Triglycerides 105 mg/dL; Very Low Density Lipoprotein 21 mg/dL (5-40)
== END | disposition home or self-care (01) ==
LOC: MTLAB 07:52
PROVIDERS: PCP Internal Medicine Infectious Disease; Referring Provider Dermatology; Visit Provider Dermatology
DX: L63.1 Alopecia universalis (principal)
CPT/HCPCS: 36415; 80053; 80061; 85025

== ENCOUNTER → 2024-04-22 | Outpatient (CLI) | payer OTHER, SELFPAY ==
[2024-04-22 10:43] LABS: Syphilis Antibodies Non-reactive
[2024-04-25 15:09] LABS: Lyme IgG P18 Ab Absent (.); Lyme IgG P23 Ab Absent (.); Lyme IgG P28 Ab Absent (.); Lyme IgG P30 Ab Absent (.); Lyme IgG P39 Ab Present (.); Lyme IgG P41 Ab Present (.); Lyme IgG P45 Ab Absent (.); Lyme IgG P58 Ab Absent (.); Lyme IgG P66 Ab Absent (.); Lyme IgG P93 Ab Present (.); Lyme IgG WB Interpretation Negative (.); Lyme IgM P23 Ab Absent (.); Lyme IgM P39 Ab Absent (.); Lyme IgM P41 Ab Present (.); Lyme IgM WB Interpretation Negative (.)
== END | disposition home or self-care (01) ==
PROVIDERS: PCP Internal Medicine Infectious Disease; Referring Provider Physician Assistant Medical; Visit Provider Physician Assistant Medical
DX: L30.8 Other specified dermatitis (principal)
CPT/HCPCS: 36415; 86617; 86780